=== PATIENT | female | born 1990 | race Caucasian/White ===

== ENCOUNTER 2018-06-11 15:58 | Outpatient (CLI) | payer OTHER ==
[~2018-06-11] VITALS: Ht 154.9 cm; Wt 89.5 kg
[~2018-06-11 15:58] MED LIST: FERR-55 PO; NO MEDS; PREN-46 PO; PREN1TAB49 BC
[2018-06-11 16:21] VITALS: Ht 154.9 cm; Wt 89.5 kg
--- NOTE | 2018-06-11 17:14 | PN ---
Triage Information Date/Time Reason for visit: Weeks of Gestation 21w 3d /Para Objective Heart Rate Comments Doptones + Contractions: None Results/Medications Imaging Results BPP 11/23 Disposition: Discharge Assessment/Plan 28 y/o at 21w 3d with presyncopal episode -advise po hydration and regular meals -discharge to ER for further evaluation -f/u with OB JOCELYNE FELIPE Jun 11, 2018 17:14
--- NOTE | 2018-06-11 17:33 | TRIAGE ---
OB Triage Datetime Report Generated by CPN: 06/11/2018 17:33 Datetime: 06/11/2018 17:12 Labor Evaluation Frequency: 0 Monitor Mode: External Heart Rate FHR Baseline Rate: 140 Monitor Mode: External US FHR Baseline Changes: No Baseline Change Variability: Moderate 6-25 bpm Accelerations: 15X15 Decelerations: None Category: Category I Pain Assessment Pain Presence: None/Denies Datetime: 06/11/2018 16:26 EGA: 21.3 Datetime: 06/11/2018 16:15 Labor Evaluation Frequency: 0 Monitor Mode: External Heart Rate FHR Baseline Rate: 135 Monitor Mode: External US FHR Baseline Changes: No Baseline Change Variability: Moderate 6-25 bpm Accelerations: 15X15 Decelerations: None Category: Category I Pain Assessment Pain Presence: None/Denies Datetime: 06/11/2018 16:00 Time of Arrival: 06/11/2018 16:00 Arrived By: Ambulance Arrived From: Home Chief Complaint: WEAKNESS Movement: Present Contractions: Denies/Absent Rupture of Membranes: Denies Vaginal Bleeding: None Vaginal Discharge: Denies Recent Sexual Intercouse: Denies Abdominal Trauma: Not Applicable Patient Complaints: None Time Provider Notified: 06/11/2018 17:03 Provider Notified: LUDIN Initial Plan: BPP Datetime: 06/11/2018 15:56 Stage of : OB Triage Assessment Type: Triage Maternal Assessment Level of Consciousness: Fully Conscious DTR's/Clonus: DTRs 2+; No Clonus Headache: Denies Blurred Vision: No Respiratory Effort: Unlabored; Regular Rhythm; Equal Expansion Breath Sounds, Left: Clear and Equal Breath Sounds, Right: Clear and Equal Nausea/Vomiting: Denies RUQ Epigastric Pain: Denies Facial Edema: None Temperature Route: Axillary Fall Risk Assessment History of Falling: (0) No Secondary Diagnosis: (0) No Ambulatory Aid: (0) Bedrest/Nurse Assist IV Therapy: (0) No Gait: (0) Normal/Bedrest/Immobile Mental Status: (0) Oriented to Own Ability Fall Score: 0 Fall Risk Score Definition: No Risk: No action required
== END 2018-06-11 17:20 | disposition home or self-care (01) ==
LOC: OBT 15:58 → L-D 15:59 → OBT 17:20
PROVIDERS: ATTEND Obstetrics & Gynecology
DX: O26.892 Other specified pregnancy related conditions, second trimester (principal); R55 Syncope and collapse; Z3A.21 21 weeks gestation of pregnancy
CPT/HCPCS: 76818; Z7500; G0463

== ENCOUNTER 2018-06-11 17:29 | Emergency (ER) | payer SELFPAY ==
[~2018-06-11] VITALS: Ht 162.6 cm; Wt 87.8 kg
[2018-06-11 17:32] VITALS: BP 129/60; PULSE 92; RESP 18; Ht 162.6 cm; Wt 87.8 kg
== END 2018-06-11 20:05 | disposition left against medical advice (07) ==
LOC: FTE 17:29
DX: Z53.21 Procedure and treatment not carried out due to patient leaving prior to being seen by health care provider (principal)

== ENCOUNTER 2018-10-15 00:14 | Outpatient (CLI) | payer OTHER ==
[~2018-10-15] VITALS: Ht 154.9 cm; Wt 96.5 kg
[2018-10-15 00:32] VITALS: Ht 154.9 cm; Wt 96.5 kg
[2018-10-15 00:33] VITALS: BP 115/75; PULSE 86; RESP 18
--- NOTE | 2018-10-15 02:10 | TRIAGE ---
OB Triage Datetime Report Generated by CPN: 10/15/2018 02:09 Datetime: 10/15/2018 01:57 Labor Evaluation Frequency: x2 Monitor Mode: External Duration (sec)2399: 70-90 Quality: Mild Pattern: Normal: <= 5 Contractions in 10 Minutes Resting Tone [place]: Relaxed Heart Rate FHR Baseline Rate: 130 Monitor Mode: External US Variability: Moderate 6-25 bpm Accelerations: 15X15 Decelerations: None Category: Category I Comments: reviewed by dr avina Datetime: 10/15/2018 01:29 Comments: u/s at bedside Datetime: 10/15/2018 01:20 Labor Evaluation Frequency: 1-9 Monitor Mode: External Duration (sec)2399: 40-120 Quality: Mild Pattern: Normal: <= 5 Contractions in 10 Minutes Resting Tone [place]: Relaxed Heart Rate FHR Baseline Rate: 120 Monitor Mode: External US Variability: Moderate 6-25 bpm Accelerations: 15X15 Decelerations: None Category: Category I Datetime: 10/15/2018 00:40 Vaginal Exam Dilatation (cms): 0.0 Effacement (%): 0 Station: -3 Exam By: ÁLVARO Membrane Status: Intact Vaginal Bleeding: None Cervix, Consistency: Firm Cervix, Position: Posterior Presentation 'A': Unable to Assess Datetime: 10/15/2018 00:28 Assessment Type: Triage Maternal Assessment Level of Consciousness: Keenly Alert, Responsive DTR's/Clonus: DTRs 2+; No Clonus Headache: Denies Blurred Vision: No Respiratory Effort: Unlabored; Regular Rhythm; Equal Expansion Breath Sounds, Left: Clear and Equal Breath Sounds, Right: Clear and Equal Nausea/Vomiting: Denies RUQ Epigastric Pain: Denies Lower Extremities Edema: Bilateral Lower Extremities Degree: 1+ Upper Extremities Edema: None Degree: None Facial Edema: None Fall Risk Assessment History of Falling: (0) No Secondary Diagnosis: (0) No Ambulatory Aid: (0) Bedrest/Nurse Assist IV Therapy: (0) No Gait: (0) Normal/Bedrest/Immobile Mental Status: (0) Oriented to Own Ability Fall Score: 0 Fall Risk Score Definition: No Risk: No action required Datetime: 10/15/2018 00:19 EGA: 38.6 Datetime: 10/15/2018 00:07 Time of Arrival: 10/15/2018 00:07 Arrived By: Wheelchair Arrived From: Home Chief Complaint: Contractions since 10/14/18 @2200 Movement: Present Contractions: Irregular Time Contractions Began: 10/14/2018 22:00 Contractions: 2-3 PER HR Rupture of Membranes: Denies Vaginal Bleeding: None Vaginal Discharge: Denies Recent Sexual Intercouse: Denies Abdominal Trauma: Not Applicable Patient Complaints: Contractions Time Provider Notified: 10/15/2018 00:55 Provider Notified: LUDIN Initial Plan: CHRISTIAN IGLESIAS
--- NOTE | 2018-10-15 05:20 | PN ---
Triage Information Date/Time 10/05/18 Reason for visit: Uterine contractions Weeks of Gestation 38w6d /Para Diabetes: none Hypertention: none Objective Vital Signs Date Temp Pulse Resp B/P (MAP) Pulse Ox O2 O2 Flow FiO2 Time Delivery Rate 10/15/18 97.9 86 18 115/75 Room Air 00:33 (88) Heart Rate: 120's Heart Rate Comments CAT I Contractions: >10 Minutes Apart Exam VE cl/long/high Results/Medications Imaging Results BPP 11/23 JACK 12.1 Disposition: Discharge Assessment/Plan A IUP 38w6d latent phase P RTH prn with routine labor instructions SCARLETT GRAY MD Oct 15, 2018 05:20
== END 2018-10-15 02:06 | disposition home or self-care (01) ==
LOC: OBT 00:14 → L-D 00:15 → OBT 02:06
PROVIDERS: ATTEND Obstetrics & Gynecology
DX: O62.9 Abnormality of forces of labor, unspecified (principal); Z3A.38 38 weeks gestation of pregnancy
CPT/HCPCS: 76818; Z7500; G0463

== ENCOUNTER 2018-10-19 17:48 | Inpatient (IN) | payer OTHER ==
[~2018-10-19] VITALS: Ht 154.9 cm; Wt 95.7 kg
[2018-10-19 18:22] VITALS: Ht 154.9 cm; Wt 95.7 kg
[2018-10-19 18:23] VITALS: BP 123/85; PULSE 76; RESP 18
[2018-10-19] MEDS ORDERED: IBUPROFEN 600 MG TAB PO PRN (18:30)
[2018-10-19] MEDS ORDERED: BUTORPHANOL 2 MG INJ IV PRN (18:30)
[2018-10-19] MEDS ORDERED: OXYTOCIN 30 UNITS/LR 500 ML IV PRN (18:30)
[2018-10-19] MEDS ORDERED: OXYTOCIN 30 UNITS/LR 500 ML IV SCH ×3 (18:30→21:30)
[2018-10-19] MEDS ORDERED: LIDOCAINE 1% (MPF) 30 ML INJ INJ PRN (18:30)
[2018-10-19] MEDS ORDERED: CARBOPROST 250 MCG INJ IM PRN (18:30)
[2018-10-19] MEDS ORDERED: METHYLERGONOVINE 0.2 MG INJ IM PRN (18:30)
[2018-10-19] MEDS ORDERED: OXYCODONE/ASPIRIN (4.88/325) TAB PO PRN (18:30)
[2018-10-19] MEDS ORDERED: MISOPROSTOL 200 MCG TAB PR PRN (18:30)
[2018-10-19] MEDS ORDERED: AMPICILLIN 2 GM/NS (PMX) 100 ML IV ONE (18:30)
[2018-10-19] MEDS: LACTATED RINGER'S 1,000 ML IV SCH (20:44)
[2018-10-20] MEDS: AMPICILLIN 1 GM/NS (PMX) 50 ML IV SCH ×3 (01:21→10:30)
[2018-10-20] MEDS: LACTATED RINGER'S 1,000 ML IV SCH ×2 (05:06→10:24)
--- NOTE | 2018-10-20 06:57 | HP ---
Date/Time of Note Date/Time of Note DATE: 10/20/18 TIME: 06:55 OB - History Hx of Present Chief Complaint: TERM PREG FOR INDUCTION DUE TO ELEVATED BP IN OFFICE Care: Good Care Ultrasounds: Normal mid trimester US Obstetrical Complications: None Medical Complications: None Past Family/Social History * Past Medical, Surgical, Family and Obstetric Histories reviewed from chart. OB Admission Exam Vital Signs Vital Signs Vital Signs Date Temp Pulse Resp B/P (MAP) Pulse Ox O2 O2 Flow FiO2 Time Delivery Rate 10/19/18 98.1 76 18 123/85 18:23 (98) Physical Exam HEENT: WNL Heart: Rhythm Normal Lungs: Clear, Equal Abdomen: WNL Extremities: Normal Reflexes: Normal Cervical Dilatation: 3cm Effacement: 75% Station: -1 Membranes: Ruptured Amniotic Fluid: Clear Heart Rate: 130's Accelerations: Accelerations Present Decelerations: No Decelerations Varibility: Moderate Contractions on Admission: 6-10 Minutes Apart Intensity: Moderate Last 72 hours Lab Results CBC & BMP 10/19/18 20:40 OB Assessment/Plan Reason for admission: induction of labor Plan: Induction MARTHA NOLAND MD Oct 20, 2018 06:57
--- NOTE | 2018-10-20 08:42 | LDN ---
Date/Time of Note Date/Time of Note DATE: 10/20/18 TIME: 08:42 Delivery Summary Placenta Delivered: Spontaneously Meconium: none Episiotomy: No Anesthesia type: None Estimated blood loss: 300 Sponge & Needle done & correct: Yes All needle counts correct: Yes Any foreign bodies felt in the: No MARTHA NOLAND MD Oct 20, 2018 08:42
--- NOTE | 2018-10-20 08:43 | DS ---
Date/Time of Note Date/Time of Note DATE: 10/20/18 TIME: 08:42 Discharge Summary Admission/Discharge Info Admit Date/Time Oct 19, 2018 at 17:51 Discharge Date/Time Discharge Diagnosis term preg Patient Condition: Stable Hospital Course unremarkable Home Meds Reported Medications Vit #108/Iron/Fa ( ONE TABLET) 1 Each Tablet, 1 EACH PO DAILY 03/05/13 Ferrous Sulfate* (Ferrous Sulfate*) 325 Mg Tablet, 325 MG PO d 12/07/10 Vits W-Ca,Fe,Fa(<1MG) () 1 Tab Tablet, 1 BC DAILY 12/07/10 [No Meds] No Conflict Check 07/02/10 Primary Care Provider Cristiane Patino Pending Labs Laboratory Tests Test 10/19/18 20:40 10/20/18 05:29 White Blood Count 7.4 10^3/ul (4.8-10.8) Red Blood Count 4.65 10^6/ul (4.20-5.40) Hemoglobin 12.7 g/dl (12.0-16.0) Hematocrit 38.0 % (37.0-47.0) Mean Corpuscular Volume 81.7 fl (82.0-101.0) Mean Corpuscular Hemoglobin 27.3 pg (29.0-33.0) Mean Corpuscular 33.4 g/dl (32.0-37.0) Hemoglobin Concent Red Cell Distribution Width 15.3 % (11.5-14.5) Platelet Count 266 10^3/UL (140-415) Mean Platelet Volume 11.0 fl (7.4-10.4) Immature Granulocytes % 0.300 % (0.001-0.429) Neutrophils % 55.9 % (39.0-77.0) Lymphocytes % 33.2 % (15.0-51.0) Monocytes % 8.4 % (0.0-11.0) Eosinophils % 1.8 % (0.0-7.0) Basophils % 0.4 % (0.0-2.0) Nucleated Red Blood Cells % 0.0 /100WBC (0.0-0.0) Immature Granulocytes # 0.020 10^3/ul (0.0-0.031) Neutrophils # 4.1 10^3/ul (1.6-7.5) Lymphocytes # 2.5 10^3/ul (0.8-2.9) Monocytes # 0.6 10^3/ul (0.3-0.9) Eosinophils # 0.1 10^3/ul (0.0-0.5) Basophils # 0.0 10^3/ul (0.0-0.1) Nucleated Red Blood Cells # 0.0 10^3/ul (0.0-0.0) Prothrombin Time 11.7 Sec (11.9-14.9) Prothrombin Time Ratio 0.9 INR International 0.85 Normalized Ratio Activated Partial Thromboplast 30.3 Sec (23.0-35.0) Time Hepatitis B Surface Antigen NEGATIVE (NEGATIVE) Lab Scanned Report REFERENCE LAB [id number] MARTHA NOLAND MD Oct 20, 2018 08:43
[2018-10-20 10:40] VITALS: BP 120/57; PULSE 72; RESP 18
[2018-10-20] MEDS: LACTATED RINGER'S 1,000 ML IV* SCH ×2 (10:53→22:52)
[2018-10-20] MEDS: OXYTOCIN 30 UNITS/LR 500 ML IV SCH ×2 (10:53→14:01)
[2018-10-20] MEDS ORDERED: SENNA/DOCUSATE NA (8.6MG/50MG) TAB PO PRN (11:00)
[2018-10-20] MEDS ORDERED: ACETAMINOPHEN 325 MG TAB PO PRN (11:00)
[2018-10-20] MEDS ORDERED: HYDROCODONE/APAP (5/325) TAB PO PRN (11:00)
[2018-10-20] MEDS ORDERED: LANOLIN HPA 1 PKT TOP PRN (11:00)
[2018-10-20] MEDS ORDERED: DIPHENHYDRAMINE 25 MG CAP PO PRN (11:00)
[2018-10-20] MEDS ORDERED: WITCH HAZEL/GLYCERIN PAD PR PRN (11:00)
[2018-10-20] MEDS ORDERED: MISOPROSTOL 200 MCG TAB PR PRN (11:00)
[2018-10-20] MEDS ORDERED: MAGNESIUM HYDROXIDE 30ML CUP PO PRN (11:00)
[2018-10-20] MEDS ORDERED: ZOLPIDEM 5 MG TAB PO PRN (11:00)
[2018-10-20] MEDS ORDERED: BENZOCAINE 20% 56 ML SPRAY TOP PRN (11:00)
[2018-10-20] MEDS ORDERED: OXYTOCIN 30 UNITS/LR 500 ML IV PRN (11:00)
[2018-10-20] MEDS ORDERED: METHYLERGONOVINE 0.2 MG INJ IM PRN (11:00)
[2018-10-20] MEDS ORDERED: CARBOPROST 250 MCG INJ IM PRN (11:00)
[2018-10-20] MEDS: IBUPROFEN 800 MG TAB PO SCH ×3 (12:29→23:36)
[2018-10-20 20:09] VITALS: BP 122/78; PULSE 75; RESP 18
[2018-10-21 03:55] VITALS: BP 109/71; PULSE 77; RESP 18
[2018-10-21] MEDS: LACTATED RINGER'S 1,000 ML IV* SCH (03:57)
[2018-10-21] MEDS: IBUPROFEN 800 MG TAB PO SCH ×2 (05:58→11:51)
[2018-10-21 07:40] VITALS: BP 122/76; PULSE 80; RESP 18
[2018-10-21] MEDS ORDERED: SENNA/DOCUSATE NA (8.6MG/50MG) TAB PO SCH (09:00)
[2018-10-21] MEDS ORDERED: DIPHTH/TET/ACEL PERTUSS (ADULT) 0.5 ML VIAL IM* ONE (14:06)
[2018-10-22] MEDS ORDERED: VARICELLA VACCINE LIVE/PF 1,350 UNIT/0.5 ML ML SC* ONE (09:00)
[2018-10-22] MEDS ORDERED: MEASLES,MUMPS,RUBELLA VACCINE INJ SC* ONE (09:00)
--- NOTE | 2018-10-22 15:01 | DELSUM ---
Delivery Summary A-C Datetime Report Generated by CPN: 10/22/2018 15:01 DELIVERY PERSONNEL [employer] Professor: Guilleunngareth Phoebe MATERNAL INFORMATION Delivery Anesthesia: None Medications in Delivery: LR 500ML PITOCIN 30 UN ITS Delivery QBL (ml): 300 Placenta Cultured: No Maternal Complications: None LABOR SUMMARY EDC: 10/23/2018 00:00 No. Babies in Womb: 1 Attempted: No Labor Anesthesia: None LABOR INFORMATION Reason for Induction: Other Reason for Induction- Other: x1 blood pressure of 129/91 @clinic Onset of Labor: 10/20/2018 08:36 Complete Dilatation: 10/20/2018 08:35 Oxytocin: Augmentation Group B Beta Strep: Positive Antibiotics # of Doses: 3 Antibiotics Time of Last Dose: 10/20/2018 05:21 Steroids Given: None Reason Steroids Not Administered: Not Applicable MEMBRANES Membranes Rupture Method: Artificial Rupture of Membranes: 10/20/2018 05:59 Length of Rupture (hr): 2.62 Amniotic Fluid Color: Clear Amniotic Fluid Amount: Large Amniotic Fluid Odor: None STAGES OF LABOR Stage 1 hr: 0 Stage 1 min: -1 Stage 2 hr: 0 Stage 2 min: 1 Stage 3 hr: 0 Stage 3 min: 3 Total Time in Labor hr: 0 Total Time in Labor min: 3 VAGINAL DELIVERY Episiotomy: None Laceration Extension: N/A Laceration Type: None Laceration Repair: Not Applicable Initial Vag Sponge Count: 10 Final Vag Sponge Count: 10 Initial Vag Sharps Count: 1 Final Vag Sharps Count: 1 Sponge Count Correct: Yes; Vaginal Sweep Performed Sharps Count Correct: Yes BABY A INFORMATION Infant Delivery Date/Time: 10/20/2018 08:36 Method of Delivery: Vaginal Born in Route : No : N/A Forceps: N/A Vacuum Extraction: N/A Shoulder Dystocia : N/A SHOULDER DYSTOCIA BABY A Delivery Date/Time: 10/20/2018 08:36 PRESENTATION/POSITION BABY A Presentation: Cephalic Cephalic Presentation: Vertex Vertex Position: Left Occipital Anterior Breech Presentation: N/A PLACENTA INFORMATION BABY A Placenta Delivery Time : 10/20/2018 08:39 Placenta Method of Delivery: Spontaneous Placenta Status: Delivered SCORES BABY A Heart Rate 1 min: >100 bpm Resp Effort 1 min: Good Cry Reflex Irritability 1 min: Cough/Sneeze/Pulls Away Muscle Tone 1 min: Active Motion Color 1 min: Body [place], Extremit Blue Resuscitation Effort 1 min: Tactile Stimulation SCORE 1 MIN: 9 Heart Rate 5 min: >100 bpm Resp Effort 5 min: Good Cry Reflex Irritability 5 min: Cough/Sneeze/Pulls Away Muscle Tone 5 min: Active Motion Color 5 min: Body [place], Extremit Blue Resuscitation Effort 5 min: Tactile Stimulation SCORE 5 MIN: 9 INFANT INFORMATION BABY A Gestational Age at Delivery: 39.4 Gestational Status: Full Term- 39- 40.6 Weeks Outcome : Liveborn, with signs of life Infant Condition : Stable Infant Sex: Female IDENTIFICATION/MEDS BABY A ID Band Number: [id number] ID Band Location: Right Leg; Left Arm Sensor Applied: Yes Sensor Number: [id number] Sensor Location : Cord Clamp Vitamin K Given : Not Given Erythromycin Given: Not Given WEIGHT/LENGTH BABY A Infant Birthweight (gm): 2910 Weight (lb): 6 Infant Weight (oz): 7 Length (in): 19.00 Infant Length (cm): 48.26 CORD INFORMATION BABY A No. Cord Vessels: 3 Nuchal Cord : N/A Nuchal Cord- Other: 0 True Knot: 0 Cord Blood Taken: Yes Banking/Donate Info: NO Suction: Mouth; Nose ASSESSMENT BABY A Complications: None Physical Findings at Delivery: Within Normal Limits Respirations: Appears Normal Magazine Worker/ALS Called : No Infant Care By: ORAL RN Transferred To: Remains with Mother
== END 2018-10-21 15:00 | disposition home or self-care (01) | DRG 807 ==
LOC: OBT 17:48 → L-D 17:51 → PP1 10-20 10:36
PROVIDERS: ADMIT Obstetrics & Gynecology; ATTEND Obstetrics & Gynecology
PROC: 10E0XZZ Delivery of Products of Conception, External Approach (ICD-10-PCS; principal; 2018-10-20)
PROC: 3E033VJ Introduction of Other Hormone into Peripheral Vein, Percutaneous Approach (ICD-10-PCS; 2018-10-20)
DX: O26.893 Other specified pregnancy related conditions, third trimester (principal); Z37.0 Single live birth; Z3A.39 39 weeks gestation of pregnancy; R03.0 Elevated blood-pressure reading, without diagnosis of hypertension
CPT/HCPCS: 85025; 85610; 85730; 86592; 86850; 86900; 86901; 87340; 90715; J0290; J0595; J2590; J7120